=== PATIENT | female | born 1960 | race Caucasian/White ===

== ENCOUNTER → 2018-06-14 | Outpatient (CLI) | payer BC ==
--- NOTE | 2018-06-18 10:43 | MM ---
Reason for exam: screening (asymptomatic). Last mammogram was performed 8 months ago. History: Patient is postmenopausal and had first child at age 35. Took estrogen for 6 years. Took progesterone for 6 years. Physical Findings: A clinical breast exam by your physician is recommended on an annual basis and results should be correlated with mammographic findings. MG 3D Screening Mammo W/Cad Bilateral CC and MLO view(s) were taken. Prior study comparison: October 26, 2017, mammogram, performed at [facility]. October 11, 2015, mammogram, performed at [facility]. October 05, 2014, mammogram, performed at [facility]. The breast tissue is heterogeneously dense. This may lower the sensitivity of mammography. There is benign appearing round calcifications in the right breast. There is no discrete abnormality. Bilateral benign axillary lymph nodes are seen. ASSESSMENT: Benign, BI-RAD 2 RECOMMENDATION: Routine screening mammogram of both breasts in 1 year.
== END | disposition home or self-care (01) ==
LOC: RADMAMWWP 15:03
PROVIDERS: ATTEND Obstetrics & Gynecology
DX: Z12.31 Encounter for screening mammogram for malignant neoplasm of breast (principal)
CPT/HCPCS: 77063; 77067

== ENCOUNTER → 2019-09-24 | Outpatient (CLI) | payer BC ==
--- NOTE | 2019-09-24 11:05 | MM ---
Reason for exam: screening (asymptomatic). Last mammogram was performed 1 year and 3 months ago. History: Patient is postmenopausal and had first child at age 35. Took estrogen for 6 years. Took progesterone for 6 years. Physical Findings: A clinical breast exam by your physician is recommended on an annual basis and results should be correlated with mammographic findings. MG 3D Screening Mammo W/Cad Bilateral CC and MLO view(s) were taken. Prior study comparison: June 14, 2018, bilateral MG 3d screening mammo w/cad. October 26, 2017, mammogram, performed at [facility]. There are scattered fibroglandular densities. Finding: There are typically benign dystrophic calcifications in the right breast. There is no discrete abnormality. ASSESSMENT: Benign, BI-RAD 2 RECOMMENDATION: Routine screening mammogram of both breasts in 1 year.
== END | disposition home or self-care (01) ==
LOC: RADMAMWWP 07:57
PROVIDERS: ATTEND Family Medicine
DX: Z12.31 Encounter for screening mammogram for malignant neoplasm of breast (principal)
CPT/HCPCS: 77063; 77067

== ENCOUNTER → 2020-10-08 | Outpatient (CLI) | payer BC ==
--- NOTE | 2020-10-11 11:51 | MM ---
Reason for exam: screening (asymptomatic). Last mammogram was performed 1 year ago. History: Patient is postmenopausal and had first child at age 35. Took estrogen for 9 years. Took progesterone for 9 years. Physical Findings: A clinical breast exam by your physician is recommended on an annual basis and results should be correlated with mammographic findings. MG Screening Mammo w CAD Bilateral CC and MLO view(s) were taken. Prior study comparison: September 24, 2019, bilateral MG 3d screening mammo w/cad. June 14, 2018, bilateral MG 3d screening mammo w/cad. There are scattered fibroglandular densities. There is no discrete abnormality. No significant changes when compared with prior studies. ASSESSMENT: Negative, BI-RAD 1 RECOMMENDATION: Routine screening mammogram of both breasts in 1 year.
== END | disposition home or self-care (01) ==
LOC: RADMAMWWP 14:45
PROVIDERS: ATTEND Obstetrics & Gynecology
DX: Z12.31 Encounter for screening mammogram for malignant neoplasm of breast (principal)
CPT/HCPCS: 77067

== ENCOUNTER 2021-07-15 11:25 | Emergency (ER) | payer BC ==
--- NOTE | 2021-07-15 12:12 | ED ---
General Adult HPI - General Chief complaint: Recheck/Abnormal Lab/Rx Stated complaint: Covid+, wants antibiotics Time Seen by Provider: 07/15/21 11:54 Source: patient, RN notes reviewed, old records reviewed Mode of arrival: ambulatory Limitations: no limitations - History of Present Illness Initial comments: 60-year-old female presenting for evaluation after testing positive for coronavirus and requesting monoclonal antibody treatment. Patient has been sick for the past 4 days. She did test positive and obtain the results yesterday. She's had cough and congestion, rhinorrhea, mild dyspnea. She has not been vaccinated against coronavirus. She is currently taking azithromycin and steroids prescribed by her primary care physician. - Related Data Allergies Allergy/AdvReac Type Severity Reaction Status Date / Time Penicillins Allergy Unknown Verified 07/15/21 11:43 Review of Systems ROS Statement: Those systems with pertinent positive or pertinent negative responses have been documented in the HPI. ROS Other: All systems not noted in ROS Statement are negative. Past Medical History Past Medical History: Hypertension History of Any Multi-Drug Resistant Organisms: None Reported Past Surgical History: Hysterectomy, Orthopedic Surgery Additional Past Surgical History / Comment(s): Knee replacement Past Psychological History: No Psychological Hx Reported Smoking Status: Former smoker Past Alcohol Use History: None Reported Past Drug Use History: None Reported General Exam Limitations: no limitations General appearance: alert, in no apparent distress Head exam: Present: atraumatic, normocephalic Eye exam: Present: normal appearance, PERRL ENT exam: Present: normal exam Neck exam: Present: normal inspection. Absent: tenderness, meningismus Respiratory exam: Present: rhonchi (Scattered rhonchi). Absent: respiratory distress Cardiovascular Exam: Present: regular rate, normal rhythm GI/Abdominal exam: Present: soft. Absent: distended, tenderness, guarding Extremities exam: Present: normal inspection, normal capillary refill. Absent: pedal edema Neurological exam: Present: alert Psychiatric exam: Present: normal affect, normal mood Skin exam: Present: warm, dry, intact. Absent: cyanosis, diaphoretic Course Vital Signs 07/15/21 07/15/21 11:38 11:48 Temperature 98.6 F Pulse Rate 109 H Respiratory 110 H 18 Rate Blood Pressure 117/60 O2 Sat by Pulse 97 Oximetry Medical Decision Making - Medical Decision Making Patient presenting with coronavirus symptoms and positive outpatient test. Requesting antibiotic infusion. This has been ordered. Patient is educated on return parameters. She is currently taking vitamin supplementation, azithromycin, and steroids prescribed by her primary care physician. She does have a pulse oximeter at home. She will continue to quarantine. Disposition Clinical Impression: COVID-19 Disposition: HOME SELF-CARE Condition: Fair Instructions (If sedation given, give patient instructions): Coronavirus Disease 2019 (COVID-19) Is patient prescribed a controlled substance at d/c from ED?: No Referrals: Galina Rojas DO [Primary Care Provider] - 1-2 days Time of Disposition: 14:00
[2021-07-15] MEDS ORDERED: SODIUM CHLORIDE 0.9% 50 ML IVPB ONE (12:15)
[2021-07-15] MEDS ORDERED: CASIRIVIMAB/IMDEVIMAB (EUA) 1,200 MG in SODIUM CHLORIDE 0.9% 100 ML IVPB ONE (12:45)
[2021-07-15 15:18] VITALS: BP 134/71; PULSE 103; RESP 24; TEMP 98.8
== END 2021-07-15 15:24 | disposition home or self-care (01) ==
LOC: EC 11:25
DX: U07.1 COVID-19 (principal); I10 Essential (primary) hypertension; Z88.0 Allergy status to penicillin; Z90.710 Acquired absence of both cervix and uterus; Z87.891 Personal history of nicotine dependence
CPT/HCPCS: 99283; 96365; Q0243

== ENCOUNTER → 2022-06-09 | Outpatient (CLI) | payer BC ==
--- NOTE | 2022-06-09 10:23 | NM ---
Nuclear medicine hepatobiliary scan. HISTORY: Pain. DOSAGE: The patient 8 ounces ensure plus and 4.7 mCi of Technetium 99m Choletec. FINDINGS: There is normal hepatic extraction. The gallbladder is seen by 15 minutes. There is bilia ry to bowel clearance by 30 minutes. Ejection fraction is 87%. IMPRESSION: 1. No evidence of cholecystitis. 2. Ejection fraction of 87% can occasionally be associated with hyperdynamic gallbladder. Correlate c linically.
== END | disposition home or self-care (01) ==
LOC: RADNMMAIN 07:08
PROVIDERS: ATTEND Family Medicine
DX: R10.11 Right upper quadrant pain (principal)
CPT/HCPCS: 78226; A9537

== ENCOUNTER → 2022-07-10 | Outpatient (CLI) | payer BC ==
--- NOTE | 2022-07-10 15:29 | BD ---
EXAMINATION TYPE: Axial Bone Density DATE OF EXAM: 07/10/2022 COMPARISON: NONE CLINICAL HISTORY: 61 years year old Female. ICD-10 CODE: Z78.0 MENOPAUSAL STATE Height: 5 FT 1 IN Weight: 195 FRAX RISK QUESTIONS: Alcohol (3 or more units per day): NO Family History (Parent hip fracture): NO Glucocorticoids (More than 3mos): NO (Ex: prednisone, prednisolone, methylprednisolone, dexamethasone, and hydrocortisone). History of Fracture in Adulthood: NO Secondary Osteoporosis: 1. Type 1 Diabetes: NO 2. Hyperthyroidism: NO 3. Menopause before 45: NO 4. Malnutrition: NO 5. Chronic liver disease: NO Rheumatoid Arthritis: NO Current Tobacco Use: NO RISK FACTORS HISTORY OF: Surgery to Spine/Hip(right/left)/Wrist (right/left): NO Family History of Osteoporosis: NO Active: SOMEWHAT Diet low in dairy products/other sources of calcium: NO Postmenopausal woman: YES Take estrogen and/or progesterone medications: NO Lost more than 2 inches in height since high school: NO Frequent falls: NO Poor Health: GOOD Hyperparathyroidism: NO Adrenal Insufficiency: NO MEDICATIONS: How Long: Thyroid Medications: YES Which medication: LEVOTHYROXINE How Lon YEARS Additional Medications: BLOOD PRESSURE, H2O PILL, LEVOTHYROXINE, ASPIRIN, SINGULAIR Additional History: [facility]ER 2020 CHEMO AND RADIATION EXAM MEASUREMENTS: Bone mineral densitometry was performed using the [employer] System. Bone mineral density as measured about the Lumbar spine is: ----- L1-L4(G/cm2): 1.291 T Score Values are as follows: ----- L1: 0.2 ----- L2: 1.5 ----- L3: 1.2 ----- L4: 0.7 ----- L1-L4: 0.9 BASELINE Bone mineral density about the R hip (g/cm2): 0.826 Bone mineral density about the L hip (g/cm2): 0.772 T Score values are as follows: -----R Neck: -1.5 -----L Neck: -1.9 -----R Total: -0.7 -----L Total: -0.9 BASELINE FRAX%s: The graph provided illustrates a 8.7 % chance for a major osteoporotic fx and a 1.0 % chance for the hips probability for fx in 10 years time. IMPRESSION: Normal (Values between +1 and -1 indicate normal bone mass). Consider repeating this study in 5 year s or sooner if there is some new clinical indication. NOTE: T-SCORE=SD OF THE YOUNG ADULT MEAN.
--- NOTE | 2022-07-14 18:25 | MM ---
Reason for Exam: Screening (asymptomatic). Last mammogram was performed 1 year(s) and 9 month(s) ago. Patient History: Menarche at age 13. First Full-Term at age 35. Late child-bearing (after 30). Left ovary removed at age 51. Right ovary removed at age 51. Hysterectomy at age 51. Postmenopausal. Patient used Estrogen for 9 years. Patient used Progesterone for 9 years. Risk Values: Catrina 5 year model risk: 2.0%. NCI Lifetime model risk: 10.0%. Prior Study Comparison: 06/14/2018 Bilateral Screening Mammogram, [facility]. 09/24/2019 Bilateral Screening Mammogram, [facility]. 10/08/2020 Bilateral Screening Mammogram, [facility]. Tissue Density: The breast tissue is almost entirely fat. Findings: Analyzed By CAD. There is no suspicious group of microcalcifications or new suspicious mass in either breast. Overall Assessment: Negative, BI-RAD 1 Management: Screening Mammogram of both breasts in 1 year. A clinical breast exam by your physician is recommended on an annual basis and results should be correlated with mammographic findings. Electronically signed and approved by: Tremaine Love DO
== END | disposition home or self-care (01) ==
LOC: RADMAMWWP 14:35
PROVIDERS: ATTEND Family Medicine
DX: Z12.31 Encounter for screening mammogram for malignant neoplasm of breast (principal); M85.851 Other specified disorders of bone density and structure, right thigh; M85.852 Other specified disorders of bone density and structure, left thigh; Z78.0 Asymptomatic menopausal state
CPT/HCPCS: 77063; 77067; 77080

== ENCOUNTER → 2023-04-30 | Outpatient (CLI) | payer BC ==
--- NOTE | 2023-05-02 08:13 | MM ---
Reason for Exam: Screening (asymptomatic). Last screening mammogram was performed 10 month(s) ago. Patient History: Menarche at age 13. First Full-Term at age 35. Late child-bearing (after 30). Left ovary removed at age 51. Right ovary removed at age 51. Hysterectomy at age 51. Postmenopausal. Patient has history of breast feeding. Other cancer, age 61. Patient used Estrogen for 9 years. Patient used Progesterone for 9 years. Risk Values: Catrina 5 year model risk: 2.0%. NCI Lifetime model risk: 9.7%. Prior Study Comparison: 10/26/2017 Screening Mammogram, [facility]. 06/14/2018 Bilateral Screening Mammogram, [facility]. 09/24/2019 Bilateral Screening Mammogram, [facility]. 10/08/2020 Bilateral Screening Mammogram, [facility]. 07/10/2022 Bilateral MG 3D screening mammo w/cad, [facility]. Tissue Density: The breast tissue is heterogeneously dense. This may lower the sensitivity of mammography. Findings: Analyzed By CAD. There is no suspicious group of microcalcifications or new suspicious mass in either breast. Overall Assessment: Negative, BI-RAD 1 Management: Screening Mammogram of both breasts in 1 year. . Patient should continue monthly self-breast exams. A clinical breast exam by your physician is recommended on an annual basis. This exam should not preclude additional follow-up of suspicious palpable abnormalities. Note on Catrina scores and lifetime risk: 1. A Catrina score greater than 3% is considered moderate risk. If this is the case, consider specialist referral to assess eligibility for a risk reducing agent. 2. If overall lifetime risk for the development of breast cancer is 20% or higher, the patient may qualify for future screening with alternating mammogram and breast MRI. Electronically signed and approved by: Dick Martinez M.D. Radiologis
== END | disposition home or self-care (01) ==
LOC: RADMAMWWP 07:05
PROVIDERS: ATTEND Obstetrics & Gynecology
DX: Z12.31 Encounter for screening mammogram for malignant neoplasm of breast (principal); C51.9 Malignant neoplasm of vulva, unspecified; Z78.0 Asymptomatic menopausal state
CPT/HCPCS: 77063; 77067

== ENCOUNTER 2024-03-09 16:56 | Observation (INO) | payer BC ==
--- NOTE | 2024-03-09 17:19 | ED ---
Abdominal Pain HPI - General Source: patient, RN notes reviewed Mode of arrival: wheelchair Limitations: no limitations <Brandy Artis - Last Filed: 03/09/24 17:17> <Brandt Willingham - Last Filed: 03/09/24 21:44> - General Chief Complaint: Abdominal Pain Stated Complaint: Pain in side and lower abd Time Seen by Provider: 03/09/24 17:12 - History of Present Illness Initial Comments: Stephenie notethijuni is a 63-year-old female presents emergency department chief complaint of fevers and right-sided flank and abdominal pain over the past 3 days. Patient states that she saw her primary care provider on Sunday where they completed a urinalysis that revealed blood and white blood cells. States that she was not started on a antibiotic. She began experiencing right-sided flank and back pain this morning where she was instructed by her primary care provider to report to the emergency department if symptoms worsen over the weekend. (Brandy Artis) Is a 63-year-old female who presents emergency department complaining of lower abdominal pain. One-time fever with it as well at home. However currently afebrile. Is complaining of right flank pain with some hematuria. Was seen by her PCP a few days ago and diagnosed with a kidney stone but was not started on any medications. States pain is worsening today which is why she presents for evaluation. Has had nausea with nonbilious nonbloody emesis. No other acute complaints. No history of abdominal surgeries. Presents for further evaluation at this time. Chest pain or shortness of breath or cough. As a quick note. (Brandt Willingham) - Related Data Home Medications Medication Instructions Recorded Confirmed Aspirin 81 mg PO DAILY 12/25/22 03/09/24 Montelukast [Singulair] 10 mg PO DAILY 12/25/22 03/09/24 Telmisartan/Hydrochlorothiazid 1 tab PO DAILY 12/25/22 03/09/24 [Telmisartan-Hctz 40-12.5 mg Tb] Albuterol Sulfate [Albuterol 2 puff PO RT-Q6H PRN 03/09/24 03/09/24 Sulfate Hfa] Levothyroxine Sodium [Synthroid] 112 mcg PO DAILY 03/09/24 03/09/24 traZODone HCL [Desyrel] 25 mg PO HS 03/09/24 03/09/24 Allergies Allergy/AdvReac Type Severity Reaction Status Date / Time Penicillins Allergy SKIN Verified 03/09/24 20:03 PEELED OFF HANDS AND FEET Review of Systems ROS Other: All systems not noted in ROS Statement are negative. <Brandy Artis - Last Filed: 03/09/24 17:17> ROS Other: All systems not noted in ROS Statement are negative. <Brandt Willingham - Last Filed: 03/09/24 21:44> ROS Statement: Those systems with pertinent positive or pertinent negative responses have been documented in the HPI. Review of Systems: CONST: Denies fever EYES: Denies blurry vision ENT: Denies nasal congestion C/V: Denies Chest pain RESP: Denies shortness of breath GI: Endorses abdominal pain : Denies dysuria SKIN: Denies rash. MSK: Denies joint pain. 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 re moval of vulvar tumor. Dr Dann Lewis [place] Past Anesthesia/Blood Transfusion Reactions: No Reported Reaction Additional Past Anesthesia/Blood Transfusion Reaction / Comment(s): pt mom was slow to wake up. no blood transfusions Past Psychological History: No Psychological Hx Reported Smoking Status: Former smoker Past Alcohol Use History: Rare Past Drug Use History: None Reported - Past Family History Mother Family Medical History: Thyroid Disorder Father Additional Family Medical History / Comment(s): varicose veins <Brandy Artis - Last Filed: 03/09/24 17:17> General Exam Limitations: no limitations <Brandy Artis - Last Filed: 03/09/24 17:17> <Brandt Willingham - Last Filed: 03/09/24 21:44> - General Exam Comments Initial Comments: Visual Physical Exam Vital signs reviewed General: Well-appearing, nontoxic, no acute distress. Head: Normocephalic, atraumatic Eyes: PERRLA, EOMI ENT: Airway patent Chest: Nonlabored breathing Skin: No visual rash, normal skin tone Neuro: Alert and oriented 3 Musculoskeletal: No gross abnormalities (Brandy Artis) General: Appears in no acute distress. HEAD: Normal with no signs of head trauma. EYES: PERRLA, EOMI, conjunctiva normal, no discharge. ENT: Hearing grossly intact, normal oropharynx. RESPIRATORY: Clear breath sounds bilaterally. No wheezes, rales, or rhonchi. C/V: Regular rate and rhythm. S1 and S2 auscultated, no edema, peripheral pulses 2+ and intact throughout ABD: Abdomen soft, nondistended. Tender to palpation in the right flank with radiation towards the right lower back and right groin. EXT: Normal range of motion, no obvious deformity SKIN: No rashes or lesions observed on exposed skin. NEURO: Alert and oriented x 4. (Brandt Willingham) Course Vital Signs 03/09/24 03/09/24 17:00 21:13 Temperature 98 F 97.8 F Pulse Rate 69 69 Respiratory 16 16 Rate Blood Pressure 161/76 138/79 O2 Sat by Pulse 100 100 Oximetry Medical Decision Making <Brandy Artis - Last Filed: 03/09/24 17:17> - Lab Data Result diagrams: 03/09/24 17:46 03/09/24 17:46 <Brandt Willingham - Last Filed: 03/09/24 21:44> - Medical Decision Making I completed the quick note portion of this chart signed Brandy Artis PA-C (Brandy Artis) Was pt. sent in by a medical professional or institution ([facility], WEB DESIGNER DEVELOPER, urgent care, hospital, or long-term...) When possible be specific @ -No Did you speak to anyone other than the patient for history (EMS, parent, family, police, friend...)? What history was obtained from this source @ -No Did you review nursing and triage notes (agree or disagree)? Why? @ -I reviewed and agree with nursing and triage notes Were old charts reviewed (outside hosp., previous admission, EMS record, old EKG, old radiological studies, urgent care reports/EKG's, long-term records)? Report findings @ -No old charts were reviewed Differential Diagnosis (chest pain, altered mental status, abdominal pain women, abdominal pain men, vaginal bleeding, weakness, fever, dyspnea, syncope, headache, dizziness, GI bleed, back pain, seizure, CVA, palpatations, mental health, musculoskeletal)? @ -Differential Abdominal Pain Women: Appendicitis, Cholecystitis, diverticulosis, ischemic bowel, pancreatitis, hepatitis, UTI, gastroenteritis, AAA, incarcerated hernia, bowel obstruction, constipation, inflammatory bowel, hepatitis, peptic ulcer disease, splenic inf arction, perforated viscus, vulvitis, ovarian torsion, PID, kidney stone, placenta abruption, this is not meant to be an all-inclusive list EKG interpreted by me (3pts min.). @ -None done X-rays interpreted by me (1pt min.). @ -None done CT interpreted by me (1pt min.). @ -CT abdomen pelvis reveals an intrarenal calculus there would not explain the patient's current symptoms. Patient may have a ruptured calyx on the right as well. Possible recently passed kidney stone as well. U/S interpreted by me (1pt. min.). @ -None done What testing was considered but not performed or refused? (CT, X-rays, U/S, labs)? Why? @ -None What meds were considered but not given or refused? Why? @ -None Did you discuss the management of the patient with other professionals (professionals i.e. , PA, WEB DESIGNER DEVELOPER, lab, RT, psych nurse, executive secretary social welfare, immigration lawyer, teacher, traffic maintenance officer, hospice case manager)? Give summary @ -Discussed the imaging and workup with Dr. Atkinson on-call urology. As patient is having intractable pain he was in agreement plan for admission and requested empiric antibiotics as well and a urine culture be sent. Accepted the patient onto his service. Will be made n.p.o. after midnight. Was smoking cessation discussed for >3mins.? @ -No Was critical care preformed (if so, how long)? @ -No Were there social determinants of health that impacted care today? How? (Homelessness, low income, unemployed, alcoholism, drug addiction, transportation, low edu. Level, literacy, decrease access to med. care, residential, rehab)? @ -No Was there de-escalation of care discussed even if they declined (Discuss DNR or withdrawal of care, Hospice)? DNR status @ -No What co-morbidities impacted this encounter? (DM, HTN, Smoking, COPD, CAD, Cancer, CVA, ARF, Chemo, Hep., AIDS, mental health diagnosis, sleep apnea, morbid obesity)? @ -None Was patient admitted / discharged? Hospital course, mention meds given and route, prescriptions, significant lab abnormalities, going to OR and other pertinent info. @ -Patient presents with right flank pain. Strongly suspect kidney stone. Abdominal labs as well as CT will be obtained. Patient will be given IV fluids, analgesia medications, Zofran, Protonix. Vital signs are within acceptable limits. Laboratory studies unremarkable. Urine is contaminated with no obvious source or signs of infection at this time. Kidney function within normal limits. Patient CT imaging reveals possible recently passed stone versus ruptured right renal calyx versus moderate hydronephrosis. Discussed the imaging and workup with Dr. Atkinson on-call urology. As patient is having intractable pain he was in agreement plan for admission and requested empiric antibiotics as well and a urine culture be sent. Accepted the patient onto his service. Will be made n.p.o. after midnight. Updated the patient who is in agreement with the plan. Started on Rocephin. Undiagnosed new problem with uncertain prognosis? @ -No Drug Therapy requiring intensive monitoring for toxicity (Heparin, Nitro, Insulin, Cardizem)? @ -No Were any procedures done? @ -No Diagnosis/symptom? @ -Dilation of renal calyces, hydronephrosis, kidney stone Acute, or Chronic, or Acute on Chronic? @ -Acute Uncomplicated (without systemic symptoms) or Complicated (systemic symptoms)? @ -Complicated Side effects of treatment? @ -No Exacerbation, Progression, or Severe Exacerbation? @ -No Poses a threat to life or bodily function? How? (Chest pain, USA, IA, pneumonia, PE, COPD, DKA, ARF, appy, cholecystitis, CVA, Diverticulitis, Homicidal, Suicidal, threat to staff... and all critical care pts) @ -Yes (Brandt Willingham) - Lab Data Lab Results 03/09/24 03/09/24 03/09/24 Range/Units 17:46 17:46 17:46 WBC 7.4 (3.8-10.6) k/uL RBC 3.55 L (3.80-5.40) m/uL Hgb 10.9 L (11.4-16.0) gm/dL Hct 34.5 (34.0-46.0) % MCV 97.1 (80.0-100.0) fL MCH 30.8 (25.0-35.0) pg MCHC 31.7 (31.0-37.0) g/dL RDW 13.7 (11.5-15.5) % Plt Count 220 (150-450) k/uL MPV 7.8 Neutrophils % 80 % Lymphocytes % 11 % Monocytes % 5 % Eosinophils % 1 % Basophils % 1 % Neutrophils # 5.9 (1.3-7.7) k/uL Lymphocytes # 0.8 L (1.0-4.8) k/uL Monocytes # 0.3 (0-1.0) k/uL Eosinophils # 0.1 (0-0.7) k/uL Basophils # 0.0 (0-0.2) k/uL Sodium 131 L (137-145) mmol/L Potassium 3.9 (3.5-5.1) mmol/L Chloride 101 (98-107) mmol/L Carbon Dioxide 21 L (22-30) mmol/L Anion Gap 9 mmol/L BUN 25 H (7-17) mg/dL Creatinine 0.81 (0.52-1.04) mg/dL Est GFR (CKD-EPI)AfAm >90 (>60 ml/min/1.73 sqM) Est GFR (CKD-EPI)NonAf 79 (>60 ml/min/1.73 sqM) Glucose 94 (74-99) mg/dL Plasma Lactic Acid Jesus 1.5 (0.7-2.0) mmol/L Calcium 9.2 (8.4-10.2) mg/dL Total Bilirubin 0.4 (0.2-1.3) mg/dL AST 28 (14-36) U/L ALT 31 (4-34) U/L Alkaline Phosphatase 92 (38-126) U/L Total Protein 6.4 (6.3-8.2) g/dL Albumin 3.8 (3.5-5.0) g/dL Urine Color Urine Appearance (Clear) Urine pH (5.0-8.0) Ur Specific [place] (1.001-1.035) Urine Protein (Negative) Urine Glucose (UA) (Negative) Urine Ketones (Negative) Urine Blood (Negative) Urine Nitrite (Negative) Urine Bilirubin (Negative) Urine Urobilinogen (<2.0) mg/dL Ur Leukocyte Esterase (Negative) Urine RBC (0-5) /hpf Urine WBC (0-5) /hpf Ur Squamous Epith Cells (0-4) /hpf Urine Bacteria (None) /hpf Hyaline Casts (0-2) /lpf Urine Mucus (None) /hpf 03/09/24 Range/Units 19:01 WBC (3.8-10.6) k/uL RBC (3.80-5.40) m/uL Hgb (11.4-16.0) gm/dL Hct (34.0-46.0) % MCV (80.0-100.0) fL MCH (25.0-35.0) pg MCHC (31.0-37.0) g/dL RDW (11.5-15.5) % Plt Count (150-450) k/uL MPV Neutrophils % % Lymphocytes % % Monocytes % % Eosinophils % % Basophils % % Neutrophils # (1.3-7.7) k/uL Lymphocytes # (1.0-4.8) k/uL Monocytes # (0-1.0) k/uL Eosinophils # (0-0.7) k/uL Basophils # (0-0.2) k/uL Sodium (137-145) mmol/L Potassium (3.5-5.1) mmol/L Chloride (98-107) mmol/L Carbon Dioxide (22-30) mmol/L Anion Gap mmol/L BUN (7-17) mg/dL Creatinine (0.52-1.04) mg/dL Est GFR (CKD-EPI)AfAm (>60 ml/min/1.73 sqM) Est GFR (CKD-EPI)NonAf (>60 ml/min/1.73 sqM) Glucose (74-99) mg/dL Plasma Lactic Acid Jesus (0.7-2.0) mmol/L Calcium (8.4-10.2) mg/dL Total Bilirubin (0.2-1.3) mg/dL AST (14-36) U/L ALT (4-34) U/L Alkaline Phosphatase (38-126) U/L Total Protein (6.3-8.2) g/dL Albumin (3.5-5.0) g/dL Urine Color Yellow Urine Appearance Cloudy H (Clear) Urine pH 5.5 (5.0-8.0) Ur Specific [place] 1.024 (1.001-1.035) Urine Protein Trace H (Negative) Urine Glucose (UA) Negative (Negative) Urine Ketones Negative (Negative) Urine Blood Negative (Negative) Urine Nitrite Negative (Negative) Urine Bilirubin Negative (Negative) Urine Urobilinogen <2.0 (<2.0) mg/dL Ur Leukocyte Esterase Large H (Negative) Urine RBC 3 (0-5) /hpf Urine WBC 24 H (0-5) /hpf Ur Squamous Epith Cells 5 H (0-4) /hpf Urine Bacteria Rare H (None) /hpf Hyaline Casts 7 H (0-2) /lpf Urine Mucus Few H (None) /hpf Disposition <Brandy Artis - Last Filed: 03/09/24 17:17> Time of Disposition: 20:44 <Brandt Willingham - Last Filed: 03/09/24 21:44> Clinical Impression: Kidney stone, Dilatation of renal calices, Hydronephrosis Disposition: ADMITTED IP TO THIS [facility] Condition: Stable
[2024-03-09] MEDS: ONDANSETRON 4 MG/2 ML VIAL IVP STA ×2 (17:55→21:07)
[2024-03-09] MEDS: SODIUM CHLORIDE 0.9% 1,000 ML IV STA ×2 (17:55→21:08)
[2024-03-09] MEDS: KETOROLAC 15 MG/ML 1 ML VIAL IVP STA (17:56)
[2024-03-09 17:57] LABS: Basophils % (A) 1 %; Eosinophils # (A) 0.1 k/uL (0-0.7); Eosinophils % (A) 1 %; HCT 34.5 % (34.0-46.0); HGB 10.9 gm/dL (11.4-16.0); Lymphocytes # (A) 0.8 k/uL (1.0-4.8); Lymphocytes % (A) 11 %; MCH 30.8 pg (25.0-35.0); MCHC 31.7 g/dL (31.0-37.0); MCV 97.1 fL (80.0-100.0); Mean Platelet Volume 7.8; Monocytes # (A) 0.3 k/uL (0-1.0); Monocytes % (A) 5 %; Neutrophils # (A) 5.9 k/uL (1.3-7.7); Neutrophils % (A) 80 %; Platelet Count 220 k/uL (150-450); RBC 3.55 m/uL (3.80-5.40); RDW 13.7 % (11.5-15.5); WBC 7.4 k/uL (3.8-10.6)
[2024-03-09] MEDS: MORPHINE SULFATE 4 MG/ML SYRINGE IVP STA ×2 (17:57→21:07)
[2024-03-09] MEDS: PANTOPRAZOLE 40 MG/10 ML VIAL IVP STA (17:59)
[2024-03-09 18:09] LABS: ALT 31 U/L (4-34); AST 28 U/L (14-36); African American GFR (CKD) >90 (>60 ml/min/1.73 sqM); Albumin 3.8 g/dL (3.5-5.0); Alkaline Phosphatase 92 U/L (38-126); Anion Gap 9 mmol/L; Blood Urea Nitrogen 25 mg/dL (7-17); Calcium 9.2 mg/dL (8.4-10.2); Carbon Dioxide 21 mmol/L (22-30); Chloride 101 mmol/L (98-107); Glucose 94 mg/dL (74-99); Non-African American GFR(CKD) 79 (>60 ml/min/1.73 sqM); Potassium 3.9 mmol/L (3.5-5.1); Sodium 131 mmol/L (137-145); Total Bilirubin 0.4 mg/dL (0.2-1.3); Total Protein 6.4 g/dL (6.3-8.2)
--- NOTE | 2024-03-09 18:37 | CT ---
EXAMINATION TYPE: CT abdomen pelvis wo con CT DLP: 927.1 mGycm, Automated exposure control for dose reduction was used. DATE OF EXAM: 03/09/2024 6:19 PM COMPARISON: None. CLINICAL INDICATION:Female, 63 years old with history of Right sided flank and back pain, hematuria; Right side flank pain and hematuria x 16 hours. TECHNIQUE: Axial CT abdomen pelvis wo con;Sagittal and coronal reformats were created on a separate workstation. Contrast used: mL of , (none if empty) Oral contrast used: without Oral Contrast (none if empty) FINDINGS: LOWER CHEST: Unremarkable ABDOMEN LIVER: Unremarkable GALLBLADDER AND BILE DUCTS: Unremarkable. PANCREAS: Unremarkable. SPLEEN: Unremarkable. ADRENAL GLANDS: Unremarkable. KIDNEYS AND URETERS: Moderate right hydronephrosis with dilation of the calyces and renal pelvis. No calculus definitively visualized. The right ureter is not definitively visualized. Some fat stranding /fluid changes around the right kidney possibly related to ruptured calyx. Nonobstructing 3 mm calcul us on the the right. No left renal calculi. No left obstructive uropathy. PELVIS BLADDER: Unremarkable REPRODUCTIVE: Unremarkable. ABDOMEN & PELVIS STOMACH AND BOWEL: No evidence of bowel obstruction. PERITONEUM/RETROPERITONEUM: No evidence of pneumoperitoneum or free fluid. VASCULATURE: Mild atherosclerotic calcifications are present throughout the abdominal aorta and its b ranches. No evidence of aortic aneurysm. MUSCULOSKELETAL: No acute osseous abnormalities LYMPH NODES: No gross evidence for lymphadenopathy. SOFT TISSUE/ABDOMINAL WALL: Fat-containing umbilical hernia. IMPRESSION: Moderate right hydronephrosis with dilation of the calyces and renal pelvis. . Some fat stranding/flu id changes around the right kidney possibly related to ruptured calyx. The right ureter is not defini tively visualized. Urology consultation recommended for retrograde evaluation of the right ureter.
[2024-03-09 20:05] LABS: Appearance,Urine Cloudy (Clear); Bacteria,Urine Rare /hpf; Bilirubin,Urine Negative (Negative); Blood,Urine Negative (Negative); Color,Urine Yellow; Glucose,Urine (UA) Negative (Negative); Hyaline Casts,Urine 7 /lpf (0-2); Ketones,Urine Negative (Negative); Leukocyte Esterase,Urine Large (Negative); Mucus,Urine Few /hpf; Nitrite,Urine Negative (Negative); PH, Urine 5.5 (5.0-8.0); Protein,Urine Trace (Negative); RBC,Urine 3 /hpf (0-5); Specific Gravity,Urine 1.024 (1.001-1.035); Squamous Epithelial Cell,Urine 5 /hpf (0-4); Urobilinogen,Urine <2.0 mg/dL (<2.0); WBC,Urine 24 /hpf (0-5)
[2024-03-09] MEDS ORDERED: KETOROLAC 15 MG/ML 1 ML VIAL IVP PRN (20:43)
[2024-03-09] MEDS ORDERED: NALOXONE 0.4 MG/ML 1 ML VIAL IV PRN (20:43)
[2024-03-09] MEDS ORDERED: ALBUTEROL HFA INHALER INHALATION PRN (20:48)
[2024-03-10] MEDS: MORPHINE SULFATE 4 MG/ML SYRINGE IV PRN (06:26)
[2024-03-10] MEDS: ONDANSETRON 4 MG/2 ML VIAL IVP PRN (08:42)
[2024-03-10] MEDS: PANTOPRAZOLE 40 MG/10 ML VIAL IV SCH (08:42)
[2024-03-10 10:40] LABS: Basophils # (A) 0.02 X 10*3/uL (0.00-0.10); Basophils % (A) 0.4 %; Eosinophils # (A) 0.06 X 10*3/uL (0.04-0.35); Eosinophils % (A) 1.2 %; HCT 32.6 % (37.2-46.3); Lymphocytes # (A) 1.14 X 10*3/uL (0.90-5.00); Lymphocytes % (A) 23.1 %; MCH 31.1 pg (27.0-32.0); MCHC 30.7 g/dL (32.0-37.0); MCV 101.2 FL (80.0-97.0); Mean Platelet Volume 9.9 FL (9.5-12.2); Monocytes # (A) 0.49 X 10*3/uL (0.20-1.00); Monocytes % (A) 9.9 %; NRBC Per 100 WBC 0 X 10*3/uL (0.00-0.01); Platelet Count 197 X 10*3/uL (140-440); RBC 3.22 X 10*6/uL (4.10-5.20); RDW 14.2 % (11.5-14.5); WBC 4.93 X 10*3/uL (4.50-10.00)
[2024-03-10] MEDS: LEVOTHYROXINE 112 MCG TAB PO SCH (11:16)
[2024-03-10] MEDS: ASPIRIN 81 MG PO SCH (13:13)
--- NOTE | 2024-03-10 16:07 | P.GSHP ---
History of Present Illness H&P Date: 03/10/24 Chief Complaint: Flank pain The patient presented with a several week history of right-sided flank and abdominal discomfort, which has increased the past several days. Associated symptoms include fever, nausea, and vomiting. She was seen by her PCP on March 07, 2024. Urinalysis at that time showed WBCs and RBCs. A kidney stone was suspected, and she was not placed on antibiotics. She presented to the ER on March [address] scan showed evidence of right hydronephrosis with perinephric stranding suggestive of a forniceal rupture. A very small right renal calculus was seen. No ureteral calculi were seen. - Constitutional Constitutional: Reports fever - Gastrointestinal Gastrointestinal: Reports abdominal pain, Reports nausea, Reports vomiting - Genitourinary (Female) Genitourinary: Reports flank pain, Reports hematuria, Reports kidney stones, Denies dysuria Past Medical History Past Medical History: Cancer, Hypertension, Osteoarthritis (OA), Thyroid Disorder Additional Past Medical History / Comment(s): seasonal allergies, non HPV squamos cell vulva,last chemo 05/19 History of Any Multi-Drug Resistant Organisms: None Reported Past Surgical History: Hysterectomy, Orthopedic Surgery Additional Past Surgical History / Comment(s): Knee replacement rt and left. removal of vulvar tumor. Dr Dann Lewis [place] Past Anesthesia/Blood Transfusion Reactions: No Reported Reaction Additional Past Anesthesia/Blood Transfusion Reaction / Comment(s): pt mom was slow to wake up. no blood transfusions Past Psychological History: No Psychological Hx Reported Smoking Status: Former smoker Past Alcohol Use History: Rare Additional Past Alcohol Use History / Comment(s): quit in high school Past Drug Use History: None Reported - Past Family History Mother Family Medical History: Thyroid Disorder Father Additional Family Medical History / Comment(s): varicose veins Medications and Allergies Home Medications Medication Instructions Recorded Confirmed Type Aspirin 81 mg PO DAILY 12/25/22 03/09/24 History Montelukast [Singulair] 10 mg PO DAILY 12/25/22 03/09/24 History Telmisartan/Hydrochlorothiazid 1 tab PO DAILY 12/25/22 03/09/24 History [Telmisartan-Hctz 40-12.5 mg Tb] Albuterol Sulfate [Albuterol 2 puff PO RT-Q6H PRN 03/09/24 03/09/24 History Sulfate Hfa] Levothyroxine Sodium [Synthroid] 112 mcg PO DAILY 03/09/24 03/09/24 History traZODone HCL [Desyrel] 25 mg PO HS 03/09/24 03/09/24 History Allergies Allergy/AdvReac Type Severity Reaction Status Date / Time Penicillins Allergy SKIN Verified 03/10/24 16:01 PEELED OFF HANDS AND FEET Surgical - Exam Vital Signs Temp Pulse Resp BP Pulse Ox 98 F 69 16 161/76 100 03/09/24 17:00 03/09/24 17:00 03/09/24 17:00 03/09/24 17:00 03/09/24 17:00 - General well developed, well nourished, moderate distress - Respiratory normal respiratory effort - Abdomen Soft, non-distended, no mass. Mild right lower quadrant tenderness, no guarding or rebound. - Psychiatric oriented to time, oriented to person, oriented to place, speech is normal, memory intact Results - Labs 03/10/24 06:02 03/09/24 17:46 Abnormal Lab Results - Last 24 Hours (Table) 03/09/24 03/09/24 03/09/24 Range/Units 17:46 17:46 19:01 RBC 3.55 L (3.80-5.40) m/uL Hgb 10.9 L (11.4-16.0) gm/dL Lymphocytes # 0.8 L (1.0-4.8) k/uL Sodium 131 L (137-145) mmol/L Carbon Dioxide 21 L (22-30) mmol/L BUN 25 H (7-17) mg/dL Urine Appearance Cloudy H (Clear) Urine Protein Trace H (Negative) Ur Leukocyte Esterase Large H (Negative) Urine WBC 24 H (0-5) /hpf Ur Squamous Epith Cells 5 H (0-4) /hpf Urine Bacteria Rare H (None) /hpf Hyaline Casts 7 H (0-2) /lpf Urine Mucus Few H (None) /hpf Diabetes panel 03/09/24 Range/Units 17:46 Sodium 131 L (137-145) mmol/L Potassium 3.9 (3.5-5.1) mmol/L Chloride 101 (98-107) mmol/L Carbon Dioxide 21 L (22-30) mmol/L BUN 25 H (7-17) mg/dL Creatinine 0.81 (0.52-1.04) mg/dL Glucose 94 (74-99) mg/dL Calcium 9.2 (8.4-10.2) mg/dL AST 28 (14-36) U/L ALT 31 (4-34) U/L Alkaline Phosphatase 92 (38-126) U/L Total Protein 6.4 (6.3-8.2) g/dL Albumin 3.8 (3.5-5.0) g/dL Calcium panel 03/09/24 Range/Units 17:46 Calcium 9.2 (8.4-10.2) mg/dL Albumin 3.8 (3.5-5.0) g/dL Pituitary panel 03/09/24 Range/Units 17:46 Sodium 131 L (137-145) mmol/L Potassium 3.9 (3.5-5.1) mmol/L Chloride 101 (98-107) mmol/L Carbon Dioxide 21 L (22-30) mmol/L BUN 25 H (7-17) mg/dL Creatinine 0.81 (0.52-1.04) mg/dL Glucose 94 (74-99) mg/dL Calcium 9.2 (8.4-10.2) mg/dL Adrenal panel 03/09/24 Range/Units 17:46 Sodium 131 L (137-145) mmol/L Potassium 3.9 (3.5-5.1) mmol/L Chloride 101 (98-107) mmol/L Carbon Dioxide 21 L (22-30) mmol/L BUN 25 H (7-17) mg/dL Creatinine 0.81 (0.52-1.04) mg/dL Glucose 94 (74-99) mg/dL Calcium 9.2 (8.4-10.2) mg/dL Total Bilirubin 0.4 (0.2-1.3) mg/dL AST 28 (14-36) U/L ALT 31 (4-34) U/L Alkaline Phosphatase 92 (38-126) U/L Total Protein 6.4 (6.3-8.2) g/dL Albumin 3.8 (3.5-5.0) g/dL - Imaging CT scan - abdomen: report reviewed, image reviewed Assessment and Plan Assessment: The patient appears to have right-sided flank and abdominal pain of renal origin. A urine culture was sent, and she is receiving Rocephin, but I do not believe she has a UTI. It is possible that she has been passing a ureteral calculus, which passed prior to the CT scan being done. However, she states that in retrospect she has experienced vague right-sided discomfort for quite some time. (1) Hydronephrosis Current Visit: Yes Status: Acute Code(s): N13.30 - UNSPECIFIED HYDRONEPHROSIS SNOMED Code(s): 92397806 (2) Kidney stone Current Visit: Yes Status: Acute Code(s): N20.0 - CALCULUS OF KIDNEY SNOMED Code(s): 65929609 Plan: Cystoscopy, right retrograde pyelogram, possible right ureteroscopy, possible right ureteral stent insertion. The rationale for the procedure has been reviewed in detail with the patient, along with potential risks which include anesthesia, bleeding, infection, and ureteral injury. Time with Patient: Greater than 30
[2024-03-10] MEDS: LACTATED RINGERS 1,000 ML IV ONE (16:08)
[2024-03-10 16:10] LABS: ALT 24 U/L (8-44); AST 20 U/L (13-35); Albumin 3.7 g/dL (3.8-4.9); Albumin/Globulin Ratio 1.95 Ratio (1.60-3.17); Alkaline Phosphatase 78 U/L (41-126); BUN/Creat Ratio 18.25 Ratio (12.00-20.00); Blood Urea Nitrogen 21.9 mg/dL (9.0-27.0); Carbon Dioxide 16.7 mmol/L (21.6-31.8); Chloride 104 mmol/L (96-109); Globulin 1.9 g/dL (1.6-3.3); Glucose 101 mg/dL (70-110); Potassium 4.8 mmol/L (3.5-5.5); Sodium 139 mmol/L (135-145); Total Bilirubin <0.2 mg/dL (0.3-1.2); Total Protein 5.6 g/dL (6.2-8.2)
[2024-03-10] MEDS: DEXAMETHASONE SOD PHOSPHATE 4 MG/ML 1 ML VIAL IVP ONE (16:18)
[2024-03-10] MEDS: ONDANSETRON 4 MG/2 ML VIAL IVP ONE (16:18)
[2024-03-10] MEDS ORDERED: GLYCOPYRROLATE 0.2 MG/ML 2 ML VIAL ONE (16:27)
[2024-03-10] MEDS ORDERED: LIDOCAINE 1% INJ 10MG/ML (20 ML MDV) ONE (16:27)
[2024-03-10] MEDS ORDERED: WATER FOR INJECTION, STERILE 10 ML VIAL IV ONE (16:27)
[2024-03-10] MEDS ORDERED: SUCCINYLCHOLINE CHLORIDE 200 MG/10 ML VIAL IV ONE (16:27)
[2024-03-10] MEDS ORDERED: PHENYLEPHRINE 10 MG/ML VIAL ONE (16:27)
[2024-03-10] MEDS ORDERED: PROPOFOL 10 MG/ML 20 ML VIAL IV ONE (16:27)
[2024-03-10] MEDS ORDERED: fentaNYL (PF) 50 MCG/ML 2 ML AMP ONE (16:27)
[2024-03-10] MEDS ORDERED: MIDAZOLAM 2 MG/2 ML VIAL ONE (16:27)
[2024-03-10] MEDS ORDERED: diphenhydrAMINE 50 MG/ML 1 ML VIAL ONE (16:27)
[2024-03-10] MEDS: hydroCHLOROthiazide 12.5 MG CAP PO SCH (16:47)
[2024-03-10] MEDS: LOSARTAN 50 MG TAB PO SCH (16:48)
[2024-03-10] MEDS: IOPAMIDOL-370 50ML BTL MISCELLANE ONE ×2 (16:58)
--- NOTE | 2024-03-10 17:53 | P.OP ---
Date of Procedure: 03/10/24 Preoperative Diagnosis: Right hydronephrosis Postoperative Diagnosis: Right hydronephrosis secondary to right UPJ obstruction Procedure(s) Performed: Cystoscopy, right retrograde pyelogram, right ureteroscopy, balloon dilation of right UPJ stricture, right ureteral stent insertion. Anesthesia: GETA Surgeon: Alan Atkinson Estimated Blood Loss (ml): 10 IV fluids (ml): 600 Pathology: none sent Condition: stable Disposition: PACU Indications for Procedure: The patient presented with a several week history of right-sided flank and abdominal discomfort, which has increased the past several days. Associated symptoms include fever, nausea, and vomiting. She was seen by her PCP on March 07, 2024. Urinalysis at that time showed WBCs and RBCs. A kidney stone was suspected, and she was not placed on antibiotics. She presented to the ER on March [address] scan showed evidence of right hydronephrosis with perinephric stranding suggestive of a forniceal rupture. A very small right renal calculus was seen. No ureteral calculi were seen. She was admitted for pain control and comes for cystoscopic evaluation. Operative Findings: Right UPJ obstruction, successfully balloon dilated. Description of Procedure: The patient was taken to the operating room and placed in the dorsolithotomy position, with legs supported in Jcarlos stirrups. The external genitalia was prepped and draped sterilely. The 30 lens was used to introduce the 22-Macanese Stortz cystoscopic sheath through the urethra and into the bladder under direct vision. The bladder was examined in its entirety. Both ureteral orifices were of normal anatomic location and configuration. No tumors or foreign bodies were seen. Using a 10 Macanese cone-tip catheter, a right retrograde pyelogram was performed. The right ureter was normal in course and caliber. The ureter had a high insertion point into the right renal pelvis, which was dilated. Findings are consistent with UPJ obstruction. The cystoscope was removed, and the ACMI flexible ureteroscope was advanced into the bladder. However, the right ureteral orifice could not be cannulated. Therefore, the ureteroscope was removed and the cystoscope was replaced into the bladder. A 0.035 inch Glidewire was passed through the cystoscope. The right ureteral orifice was cannulated, and the Glidewire was slowly advanced up to the renal pelvis. An 11/13 Macanese ureteral access catheter was passed over the wire, up to the proximal ureter. The ACMI flexible ureteroscope was then passed through the ureteral access catheter sheath and advanced under direct vision, up to the ureteropelvic junction. Due to narrowing of the UPJ, it was very difficult to advance the ureteroscope into the right renal pelvis, which was noted to be markedly hydronephrotic. The ureteroscope was withdrawn. The Glidewire was passed through the ureteral access catheter sheath, which was removed. An 18 Macanese, 4 cm balloon dilating catheter was then passed over the wire, up to the ureteropelvic junction. The balloon was inflated to a pressure of 15 margy. Initially, there was a "waist" which ultimately opened up, and the balloon was left inflated for a total of 5 minutes. The balloon dilating catheter was then removed, leaving the Glidewire in place. The Glidewire was backloaded into the cystoscope, which was passed into the bladder. A 24 cm, 6-Macanese double-J ureteral stent was placed over the wire. Proper stent positioning was verified fluoroscopically and endoscopically. The bladder was emptied and the cystoscope removed. The patient tolerated the procedure well was taken to the recovery room in stable condition.
--- NOTE | 2024-03-10 18:04 | FL ---
EXAMINATION TYPE: FL urography retrograde Intraoperative/procedural fluoroscopic services were provid ed. Total fluoroscopy time is 57.8 seconds with a total of 8 submitted images to PACS. Please see the operative/procedural note for further details. DAP: 11.550 Gycm2
[2024-03-11 08:25] VITALS: BP 114/65; PULSE 61; RESP 18; TEMP 98.1
--- NOTE | 2024-03-11 12:48 | P.DS ---
Providers Date of admission: 03/09/24 20:44 Attending physician: Alan Atkinson Primary care physician: Galina Rojas Hospital Course: Is a 63-year-old female admitted to the hospital with intractable right-sided flank pain secondary to right-sided hydronephrosis with evidence of UPJ obstruction. Patient was taken to the OR by Dr. Atkinson on March 10, at that point she underwent ureteral balloon dilation of the UPJO and stent insertion. Please see op note dated March 10 for surgery details. Patient was admitted to the hospital postoperatively, she did well in the postoperative period. She was discharged home on postop day #1, at time of discharge she was tolerating a diet, ambulating, and pain is controlled. She will follow-up as an outpatient with Dr. King for stent removal Patient Condition at Discharge: Stable Plan - Discharge Summary Discharge Rx Participant: No New Discharge Prescriptions: No Action Aspirin 81 mg PO DAILY Telmisartan/Hydrochlorothiazid [Telmisartan-Hctz 40-12.5 mg Tb] 1 tab PO DAILY Levothyroxine Sodium [Synthroid] 112 mcg PO DAILY Albuterol Sulfate [Albuterol Sulfate Hfa] 2 puff PO RT-Q6H PRN PRN Reason: Shortness Of Breath Montelukast [Singulair] 10 mg PO DAILY traZODone HCL [Desyrel] 25 mg PO HS Discharge Medication List Aspirin 81 mg PO DAILY 12/25/22 [History] Montelukast [Singulair] 10 mg PO DAILY 12/25/22 [History] Telmisartan/Hydrochlorothiazid [Telmisartan-Hctz 40-12.5 mg Tb] 1 tab PO DAILY 12/25/22 [History] Albuterol Sulfate [Albuterol Sulfate Hfa] 2 puff PO RT-Q6H PRN 03/09/24 [History] Levothyroxine Sodium [Synthroid] 112 mcg PO DAILY 03/09/24 [History] traZODone HCL [Desyrel] 25 mg PO HS 03/09/24 [History] Follow up Appointment(s)/Referral(s): Alan Atkinson MD [STAFF PHYSICIAN] - 2 Weeks Galina Rojas DO [Primary Care Provider] - 1-2 days Activity/Diet/Wound Care/Special Instructions: Patient to obtain previous CT scan reports and CD disc of CT scan images prior to follow-up appointment with Dr. Atkinson. Discharge Disposition: HOME SELF-CARE
== END 2024-03-11 12:44 | disposition home or self-care (01) ==
LOC: EC 16:56 → 6NMEDSUR 20:44
PROVIDERS: ADMIT Urology; ATTEND Urology
DX: N13.2 Hydronephrosis with renal and ureteral calculous obstruction (principal); Z96.653 Presence of artificial knee joint, bilateral; Z90.710 Acquired absence of both cervix and uterus; Z79.899 Other long term (current) drug therapy; Z79.890 Hormone replacement therapy; Z79.82 Long term (current) use of aspirin; Z87.891 Personal history of nicotine dependence
CPT/HCPCS: 52345; 96376; 96361; 96365; 96367; 96375; 99285; 36415; 80053 ×2; 83605; 85025 ×2; 81001; 87086; 74420; 74176; G0378 ×3; C2625; C1758; C1769; J2270 ×2; J1100; J2405 ×2; J0696 ×3; J1885; C9113 ×3; Q9967

== ENCOUNTER → 2024-05-27 | Outpatient (CLI) | payer BC ==
[~2024-05-27] MED LIST: FUROSEMIDE 10 MG/ML 2 ML VIAL IV ONE
--- NOTE | 2024-05-27 14:39 | NM ---
EXAMINATION TYPE: NM lasix renogram DATE OF EXAM: 05/27/2024 COMPARISON: 03/09/2024 CLINICAL INDICATION: Female, 63 years old with history of N13.30 UNSPECIFIED HYDRONEPHROSIS; Following administration of 10.5 mCi Tc 99m MAG3 with 20mg Lasix. Immediate images post injection FINDINGS: Left: 51.7 %. Right: 48.3 %. Max renal flow left: 3 minutes. Max renal flow right: 4 minutes. Satisfactory accumulation of radiotracer within both renal collecting systems. After the administrati on of Lasix, there is prompt excretion from both collecting systems. T 1/2 left: 19.7 minutes minutes. T 1/2 right: 15 minutes minutes. IMPRESSION: Kidneys slightly increased left compared to right renal function. No evidence for obstruction.
== END | disposition home or self-care (01) ==
LOC: RADNMMAIN 12:37
PROVIDERS: ATTEND Urology
DX: N13.30 Unspecified hydronephrosis (principal)
CPT/HCPCS: 78708; A9562

== ENCOUNTER → 2024-07-08 | Outpatient (CLI) | payer BC ==
--- NOTE | 2024-07-08 14:05 | MM ---
Reason for Exam: Screening (asymptomatic). Last mammogram was performed 1 year(s) and 2 month(s) ago. Patient History: Menarche at age 13. First Full-Term at age 35. Late child-bearing (after 31). Left ovary removed at age 51. Right ovary removed at age 51. Hysterectomy at age 51. Postmenopausal. Patient has history of breast feeding. Other cancer, age 61. Previous chemotherapy at age 61. Patient used Estrogen for 9 years. Patient used Progesterone for 9 years. Risk Values: Catrina 5 year model risk: 2.1%. NCI Lifetime model risk: 9.4%. Prior Study Comparison: 10/08/2020 Bilateral Screening Mammogram, [facility]. 07/10/2022 Bilateral MG 3D screening mammo w/cad, [facility]. 04/30/2023 Bilateral MG 3D screening mammo w/cad, [facility]. Tissue Density: There are scattered areas of fibroglandular density. Findings: Analyzed By CAD. There is no suspicious group of microcalcifications or new suspicious mass in either breast. Overall Assessment: Negative, BI-RAD 1 Management: Screening Mammogram of both breasts in 1 year. . Patient should continue monthly self-breast exams. A clinical breast exam by your physician is recommended on an annual basis. This exam should not preclude additional follow-up of suspicious palpable abnormalities. Note on Catrina scores and lifetime risk: 1. A Catrina score greater than 3% is considered moderate risk. If this is the case, consider specialist referral to assess eligibility for a risk reducing agent. 2. If overall lifetime risk for the development of breast cancer is 20% or higher, the patient may qualify for future screening with alternating mammogram and breast MRI. Electronically signed and approved by: Dick Martinez M.D. Radiologis
== END | disposition home or self-care (01) ==
LOC: RADMAMWWP 07:01
PROVIDERS: ATTEND Otolaryngology
DX: Z12.31 Encounter for screening mammogram for malignant neoplasm of breast
CPT/HCPCS: 77063; 77067

== ENCOUNTER → 2024-11-04 | Outpatient (CLI) | payer BC ==
--- NOTE | 2024-11-04 14:22 | US ---
EXAMINATION TYPE: US kidneys/renal and bladder DATE OF EXAM: 11/04/2024 COMPARISON: CT 03/09/2024 CLINICAL INDICATION: Female, 64 years old with history of R10.30 LOW ABD PAIN; Right flank pain TECHNIQUE: Grayscale imaging of the bilateral kidneys and urinary bladder: FINDINGS: EXAM MEASUREMENTS: Right Kidney: 11.3 x 5.4 x 5.5 cm Left Kidney: 10.6 x 5.1 x 5.2 cm Right Kidney: There is moderate to severe hydronephrosis. In addition, there is a 2.2cm hypoechoic ro und lesion lateral inferior pole Left Kidney: wnl Bladder: wnl Bilateral Jets seen: yes IMPRESSION: 1. Moderate to severe right hydronephrosis seems to persist compared to 03/09/2024. Correlate as to an y known diagnosis. UPJ obstruction is in the differential. 2. In addition, there is a 2.2 cm round lesion at the right lower pole, suspected cyst. Internal echo es could be artifactual or could represent debris. Recommend 3-6 month follow-up ultrasound to ensure stability. [facility], Workstation: [email or web address], 11/04/2024 2:20 PM
== END | disposition home or self-care (01) ==
LOC: RADUSWWP 12:45
PROVIDERS: ATTEND Family Medicine
DX: N13.30 Unspecified hydronephrosis (principal); N28.9 Disorder of kidney and ureter, unspecified
CPT/HCPCS: 76770